=== PATIENT | male | born 1940 | race African-American/Black ===

== ENCOUNTER 2025-06-27 05:58 | Emergency (ER) | payer MEDICARE, MEDICAID ==
[~2025-06-27] VITALS: Ht 172.7 cm; Wt 80.0 kg
[~2025-06-27 05:58] MED LIST: AMLO10TA80 PO; ATEN-42 PO; BENA40TA91 PO; CEPH500C2 PO; HYDR12.54 PO; LEVO25TA7 PO; SIMV-46 PO; SITA100T11 PO; SULF-13 PO; TAMS0.4C31 PO
[2025-06-27 06:01] VITALS: O2SAT 99
[2025-06-27] MEDS: KETOROLAC 15MG/ML VIAL IV ONE (06:49)
[2025-06-27] MEDS: ACETAMINOPHEN 500MG TABLET PO ONE (06:49)
[2025-06-27 07:29] LABS: BASOPHILS % 0.5 % (0.0-2.0); EOSINOPHILS % 1.9 % (0.0-5.0); HEMATOCRIT. 42.4 % (42.0-52.0); HEMOGLOBIN. 14.1 g/dL (14.0-18.0); LYMPHOCYTES % 13.4 % (20.0-50.0); MEAN PLATELET VOLUME 8.5 fl (7.4-10.4); MONOCYTES % 9.7 % (2.0-8.0); NEUTROPHILS % 74.5 % (40.0-76.0); PLATELET 168 x1000/uL (130-400); RED BLOOD CELL COUNT 4.86 mill/uL (4.7-6.1); RED CELL DISTRIBUTION WIDTH 13.9 % (11.6-14.6)
[2025-06-27 08:05] LABS: CREATININE 1.1 mg/dL (0.6-1.3); UREA NITROGEN BLOOD 10 mg/dL (9-23)
[2025-06-27 08:18] LABS: ERYTHROCYTE SEDIMENTATION RATE 7 mm/hr (0-30)
[2025-06-27 08:19] LABS: C REACTIVE PROTEIN HIGH SENS 22.74 mg/l (<1.00)
[2025-06-27] MEDS ORDERED: NAPR-681 MT (09:33)
[2025-06-27 10:01] VITALS: BP 193/75; PULSE 81; RESP 18; TEMP 36.7; O2SAT 98
[2025-06-27] MEDS ORDERED: IOHEXOL-300 100 ML BOTTLE ONE (10:42)
== END 2025-06-27 10:15 | disposition home or self-care (01) ==
LOC: ER 05:58
DX: M19.042 Primary osteoarthritis, left hand (principal); E11.9 Type 2 diabetes mellitus without complications; I10 Essential (primary) hypertension
CPT/HCPCS: 99285; 73201; 96374; 80048; 82550; 86141; 85025; 85651; 36415; 73090; 73110; 73120; J1885; Q9967